=== PATIENT | female | born 1990 ===

== ENCOUNTER 2024-11-07 14:47 | Emergency (ER) | payer SELFPAY ==
[2024-11-07 15:10] VITALS: BP 117/81; PULSE 85; RESP 16; TEMP 37; O2SAT 96; BMI 29.2
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
--- NOTE | 2024-11-07 16:41 | PC.NURSE ---
nax3 1618, 1625, 1637 for discharge papers.
== END 2024-11-07 16:45 | disposition home or self-care (01) ==
LOC: SERX 16:42
PROVIDERS: Emergency Provider Emergency Medicine
DX: M43.6 Torticollis (principal)
CPT/HCPCS: 99281